=== PATIENT | male | born 1975 | race Caucasian/White ===

== ENCOUNTER 2017-12-19 01:21 | Emergency (ER) | payer MEDICAID ==
[~2017-12-19] VITALS: Ht 182.9 cm; Wt 93.0 kg
[~2017-12-19 01:21] MED LIST: ABILIFY10 MG PO; ACETAMINOPHEN-1 EAC1 PO; ANAPROX DS550 MG PO; ANTIVERT25 MG PO; ASPIRIN81 M2 PO; BENTYL 20 MG TA20 M1 PO; CELEBREX 200 M200 M1 PO; CHANTIX1 MG PO; CIALIS5 MG PO; CIPROFLOXACIN500 M1 PO; CLOPIDOGREL75 MG PO; CYMBALTA20 MG PO; CYMBALTA60 MG PO; DESYREL300 MG; DOXEPIN 25 MG C25 M1 GT; ELOCON15 GM TP; FLAGYL500 MG PO; FLEXERIL PO; FLOMAX0.4 MG PO; HEARTBURN TREAT15 MG PO; HUMALOG100 UNIT/2 SQ; HYDROCODONE-AP1 EAC6 PO; HYOSCYAMINE0.15 MG PO; IBUPROFEN 800800 M1 PO; INDOMETHACIN 2525 MG; LAMICTAL100 MG PO; LANTUS100 UNIT/M SUBQ; LISINOPRIL5 MG PO; LITHIUM CARBON150 MG; LITHIUM CARBON300 M6; LOPRESSOR25; METFORMIN HCL500 MG PO; MINIPRESS1 MG PO; MIRALAX255 GM PO; NEURONTIN 300300 M1; NEURONTIN 300300 M1 PO; NORCO 10-325 T1 EACH PO; NORCO 5-325 TA1 EACH PO; NORFLEX100 MG PO; PERCOCET 5-3251 EACH PO; PERCOCET 7.5-31 EACH PO; PERCOCET PO; PHENADOZ25 MG RC; PHENERGAN 25 MG25 MG PO; PREDNISONE 20 M20 M1 PO; RELPAX40 MG; RESTORIL30 MG PO; RISPERDAL 1 MG T1 MG PO; SEROQUEL XR 30300 M1; SEROQUEL XR 30300 MG; SIMVASTATIN40 MG PO; TRAZODONE 150150 M1 PO; TRAZODONE HCL100 MG PO; ULTRACET TABLE1 EACH PO; ULTRAM 50MG TAB50 MG PO; VICODIN 5-5001 EACH; VICODIN 5-5001 EACH PO; VICODIN ES TAB1 EACH PO; XANAX 0.25 MG0.25 MG PO; ZOFRAN ODT4 MG PO
[2017-12-19 02:18] VITALS: BP 152/68
== END 2017-12-19 02:20 | disposition home or self-care (01) ==
LOC: M.ERS 01:21
DX: M25.562 Pain in left knee (principal); F31.9 Bipolar disorder, unspecified; G89.29 Other chronic pain; M54.9 Dorsalgia, unspecified; F17.200 Nicotine dependence, unspecified, uncomplicated